=== PATIENT | male | born 1955 | race Caucasian/White ===

== ENCOUNTER 2021-08-29 11:43 | Inpatient (IN) | payer MEDICARE, OTHER ==
[~2021-08-29] VITALS: Ht 185.4 cm; Wt 104.5 kg
[2021-08-29 12:40] LABS: HEMOGLOBIN 17.6 gm/dl (14.0-17.5); RED BLOOD COUNT 5.39 M/UL (4.20-5.50); WHITE BLOOD COUNT 9.8 K/UL (4.5-11.0)
[2021-08-29 13:08] LABS: BUN/CREATININE RATIO 19 (0-10)
[2021-08-29] MEDS ORDERED: HYDRALAZINE HCL50 MG PO (16:41)
[2021-08-29] MEDS ORDERED: LISINOPRIL-HCT1 EAC1 PO (16:41)
[2021-08-29] MEDS ORDERED: NORVASC10 MG PO (16:42)
[2021-08-29] MEDS ORDERED: PREVACID30 MG PO (16:42)
[2021-08-29] MEDS ORDERED: ISOSORBIDE MONO60 MG PO (16:43)
[2021-08-29] MEDS ORDERED: ECOTRIN81 MG PO (16:43)
[2021-08-29] MEDS ORDERED: LIPITOR40 MG PO (16:44)
[2021-08-29] MEDS ORDERED: LOPRESSOR 25 MG25 MG PO (16:44)
[2021-08-29] MEDS ORDERED: VITAMIN D21250 MCG PO (16:45)
[2021-08-29] MEDS ORDERED: NITROGLYCERIN0.4 MG SL (16:48)
[2021-08-30 04:33] LABS: HEMOGLOBIN 16.1 gm/dl (14.0-17.5); RED BLOOD COUNT 5.04 M/UL (4.20-5.50)
[2021-08-30 05:06] LABS: BUN/CREATININE RATIO 18 (0-10)
[2021-08-30 22:27] LABS: HEMOGLOBIN 15.1 gm/dl (14.0-17.5); RED BLOOD COUNT 4.64 M/UL (4.20-5.50); WHITE BLOOD COUNT 7.9 K/UL (4.5-11.0)
[2021-08-30 22:59] LABS: BUN/CREATININE RATIO 18 (0-10)
[2021-08-31 03:10] LABS: HEMOGLOBIN 14.9 gm/dl (14.0-17.5); RED BLOOD COUNT 4.62 M/UL (4.20-5.50); WHITE BLOOD COUNT 7.7 K/UL (4.5-11.0)
[2021-08-31 04:04] LABS: BUN/CREATININE RATIO 19 (0-10)
[2021-08-31] MEDS ORDERED: LOPRESSOR 25 MG25 MG PO (12:08)
[2021-08-31] MEDS ORDERED: ATORVASTATIN CA20 MG PO (12:08)
[2021-08-31] MEDS ORDERED: BRILINTA 90 MG90 MG PO (12:08)
== END 2021-08-31 13:00 | disposition home or self-care (01) | DRG 247 ==
LOC: ER1 11:43 → PROG CARE 14:48 → CDU 14:48 → PROG CARE 20:22
PROVIDERS: Emergency Medicine; Internal Medicine Interventional Cardiology; ADMIT Internal Medicine Infectious Disease
PROC: 027034Z Dilation of Coronary Artery, One Artery with Drug-eluting Intraluminal Device, Percutaneous Approach (ICD-10-PCS; principal; 2021-08-30)
PROC: B2111ZZ Fluoroscopy of Multiple Coronary Arteries using Low Osmolar Contrast (ICD-10-PCS; 2021-08-30)
DX: I21.4 Non-ST elevation (NSTEMI) myocardial infarction (principal); Z20.822 Contact with and (suspected) exposure to COVID-19; I10 Essential (primary) hypertension; E87.6 Hypokalemia; K22.70 Barrett's esophagus without dysplasia; K21.9 Gastro-esophageal reflux disease without esophagitis; K74.60 Unspecified cirrhosis of liver; Z90.49 Acquired absence of other specified parts of digestive tract; Z98.890 Other specified postprocedural states; Z82.49 Family history of ischemic heart disease and other diseases of the circulatory system; Z79.899 Other long term (current) drug therapy; Z88.6 Allergy status to analgesic agent; Z79.82 Long term (current) use of aspirin; Z88.8 Allergy status to other drugs, medicaments and biological substances
CPT/HCPCS: 36415; 71045; 80048; 80053; 80061; 82550; 82553; 83605; 83690; 83735; 84484; 85025; 85027; 85347; 85379; 85610; 85730; 92978; 93005; 96374; 96375; 99152; 99153; 99285; C1725; C1753; C1769; C1874; C1887; C1894; C9113; C9600; J0360; J0461; J1644; J2250; J2270; J2405; J3010; J3246; J7040; Q9967; U0002